=== PATIENT | female | born 1970 | race Caucasian/White ===

== ENCOUNTER 2017-06-28 13:30 | Emergency (ER) | payer OTHER ==
[~2017-06-28] VITALS: Ht 154.9 cm; Wt 89.0 kg
[~2017-06-28 13:30] MED LIST: MOTRIN
[2017-06-28 13:40] VITALS: BP 129/80
--- NOTE | 2017-06-28 13:51 | NUR ---
Patient to bed 11.
--- NOTE | 2017-06-28 14:05 | NUR ---
46/F BIB FAMILY C/O SORE THROAT WITH COLD S/SX x 4 DAYS; PT DENIES ANY CP OR SOB; PT IS AOX4 WITH EVEN AND STEADY GAIT; RR ARE EVEN AND UNSTEADY; NAD; ALL NEEDS MET AT THIS TIME. AWAITING ER MD THOMAS.
--- NOTE | 2017-06-28 15:41 | NUR ---
er md huynh by bedside examinig pt
[2017-06-28] MEDS ORDERED: KETOROLAC 60 MG/2 ML VIAL IM ONE (15:45)
--- NOTE | 2017-06-28 16:18 | NUR ---
Patient discharged with v/s stable. Written and verbal after care instructions given and explained. Patient alert, oriented and verbalized understanding of instructions. Ambulatory with steady gait. All questions addressed prior to discharge. ID band removed. Patient advised to follow up with PMD. Rx of MOtrin and Prednisone given. Patient educated on indication of medication including possible reaction and side effects. Opportunity to ask questions provided and answered.
[2017-06-28 16:19] VITALS: BP 130/87
== END 2017-06-28 16:18 | disposition home or self-care (01) ==
LOC: MED 13:30
DX: J02.9 Acute pharyngitis, unspecified (principal); Z90.89 Acquired absence of other organs
CPT/HCPCS: 96372; 99283; J1885

== ENCOUNTER 2018-11-02 12:47 | Emergency (ER) | payer OTHER ==
[~2018-11-02] VITALS: Ht 165.1 cm; Wt 81.6 kg
[2018-11-02 12:58] VITALS: BP 131/79
--- NOTE | 2018-11-02 14:19 | NUR ---
Patient ambulated to bed 1 with family. RN evaluating patient at bedside.
--- NOTE | 2018-11-02 14:35 | NUR ---
C/O LLE PAIN X 1 WEEK. 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 NO SWELLING/REDNESS/WARMTH NOTED. PAIN TO TOUCH. PT DENIES RECENT ILLNESS/INJURY, N/V/D/FEVER. SKIN IS PINK/WARM/DRY; AAOX4 WITH UNSTEADY GAIT; LUNGS CLEAR BL; HR EVEN AND REGULAR; PT DENIES ANY CP, SOB, OR COUGH AT THIS TIME; VSS; PATIENT POSITIONED FOR COMFORT; HOB ELEVATED; BEDRAILS UP X1; BED DOWN. ER MD MADE AWARE OF PT STATUS.
--- NOTE | 2018-11-02 14:36 | NUR ---
GAVE PT A CUP FOR URINE
--- NOTE | 2018-11-02 16:00 | NUR ---
PT DOES NOT NEED OXYGEN AT THIS TIME O2 SAT 98% DR. COLEEN MORRISSEY AWARE
[2018-11-02 16:14] LABS: BASOPHILS % (AUTO) 0.5 % (0.0-2.0); EOSINOPHILS # (AUTO) 0.2 K/uL (0-0.4); EOSINOPHILS % (AUTO) 2.8 % (0.0-4.0); HEMATOCRIT 33.6 % (36-48); HEMOGLOBIN 10.8 g/dL (12.0-16.0); LYMPHOCYTES # (AUTO) 1.9 K/uL (2.5-16.5); LYMPHOCYTES % (AUTO) 34.1 % (20.5-51.1); MEAN CORPUSCULAR HEMOGLOBIN 25 pg (27-31); MEAN CORPUSCULAR HGB CONC 32 g/dL (33-37); MEAN CORPUSCULAR VOLUME 79.1 fL (80-94); MONOCYTES # (AUTO) 0.4 K/uL (0.8-1.0); MONOCYTES % (AUTO) 7.2 % (1.7-9.3); NEUTROPHILS % (AUTO) 55.4 % (42.2-75.2); PLATELET COUNT (AUTO) 240 K/uL (140-450); RED BLOOD CELL COUNT(AUTO) 4.25 MIL/uL (4.20-5.40); RED CELL DISTRIBUTION WIDTH 16.1 % (11.6-13.7); WHITE BLOOD COUNT (AUTO) 5.4 K/uL (4.8-10.8)
--- NOTE | 2018-11-02 16:20 | NUR ---
XRAY AT BEDSIDE
[2018-11-02 16:28] LABS: PROTHROMBIN TIME 10.2 secs (10.8-13.4)
[2018-11-02 16:33] LABS: MAGNESIUM 2.1 mg/dL (1.8-2.4)
[2018-11-02 16:34] LABS: ALBUMIN 3.6 g/dL (3.4-5.0); ANION GAP 13.5 (8-16); CARBON DIOXIDE 25.1 mmol/L (21-32); CREATININE 0.7 mg/dL (0.6-1.3); POTASSIUM 3.6 mmol/L (3.5-5.1); TOTAL BILIRUBIN 0.2 mg/dL (0.0-1.0)
[2018-11-02 16:48] LABS: APPEARANCE,URINE CLEAR (CLEAR); BILIRUBIN,URINE NEGATIVE (NEGATIVE); BLOOD, URINE NEGATIVE (NEGATIVE); COLOR,URINE YELLOW (YELLOW); LEUKOCYTE ESTERASE ,URINE NEGATIVE (NEGATIVE); NITRITE, URINE NEGATIVE (NEGATIVE); UGLUCOSE NEGATIVE (NEGATIVE)
[2018-11-02] MEDS ORDERED: KETOROLAC 60 MG/2 ML VIAL IM ONE (17:55)
[2018-11-02 18:44] VITALS: BP 120/81
== END 2018-11-02 18:44 | disposition home or self-care (01) ==
LOC: MED 12:47
DX: R25.2 Cramp and spasm (principal); Z86.718 Personal history of other venous thrombosis and embolism; Z79.01 Long term (current) use of anticoagulants; Z79.1 Long term (current) use of non-steroidal anti-inflammatories (NSAID); Z86.711 Personal history of pulmonary embolism
CPT/HCPCS: 36415; 71045; 80053; 81003; 81025; 82150; 82550; 83690; 83735; 83880; 84484; 85025; 85379; 85610; 86886; 86900; 86901; 93005; 93971; 96372; 99284; J1885; Q0092

== ENCOUNTER 2021-10-04 15:30 | Inpatient (IN) | payer OTHER, SELFPAY ==
[~2021-10-04] VITALS: Ht 152.4 cm; Wt 91.2 kg
[2021-10-04 15:31] VITALS: BP 154/87
--- NOTE | 2021-10-04 15:43 | NUR ---
PT AMB TO BED 6.
[2021-10-04] MEDS ORDERED: ACETAMINOPHEN EXTRA STRENGTH 500 MG TAB PO ONE (16:05)
--- NOTE | 2021-10-04 16:24 | NUR ---
LAB AT PATIENT BEDSIDE.
[2021-10-04 16:45] LABS: EOSINOPHILS # (AUTO) 0.1 K/uL (0-0.4); EOSINOPHILS % (AUTO) 1.4 % (0.0-4.0); HEMATOCRIT 25.6 % (36-48); HEMOGLOBIN 7.8 g/dL (12.0-16.0); LYMPHOCYTES # (AUTO) 1.4 K/uL (2.5-16.5); LYMPHOCYTES % (AUTO) 27.8 % (20.5-51.1); MEAN CORPUSCULAR HEMOGLOBIN 21 pg (27-31); MEAN CORPUSCULAR HGB CONC 31 g/dL (33-37); MEAN CORPUSCULAR VOLUME 70.1 fL (80-94); MONOCYTES # (AUTO) 0.6 K/uL (0.8-1.0); MONOCYTES % (AUTO) 12.2 % (1.7-9.3); NEUTROPHILS # (AUTO) 2.9 K/uL (1.8-7.7); NEUTROPHILS % (AUTO) 58.6 % (42.2-75.2); PLATELET COUNT (AUTO) 221 K/uL (140-450); RED BLOOD CELL COUNT(AUTO) 3.65 MIL/uL (4.20-5.40); RED CELL DISTRIBUTION WIDTH 17.5 % (11.6-13.7); WHITE BLOOD COUNT (AUTO) 4.9 K/uL (4.8-10.8)
[2021-10-04 16:50] LABS: APPEARANCE,URINE CLEAR (CLEAR); BILIRUBIN,URINE NEGATIVE (NEGATIVE); BLOOD, URINE 3+ (NEGATIVE); LEUKOCYTE ESTERASE ,URINE NEGATIVE (NEGATIVE); NITRITE, URINE NEGATIVE (NEGATIVE); UGLUCOSE NEGATIVE (NEGATIVE)
[2021-10-04 16:57] LABS: ANION GAP 12.3 (8-16); CARBON DIOXIDE 26.2 mmol/L (21-32); CREATININE 0.6 mg/dL (0.6-1.3); POTASSIUM 3.5 mmol/L (3.5-5.1)
[2021-10-04 17:00] LABS: COLOR,URINE STRAW (YELLOW)
[2021-10-04 17:01] LABS: PROTHROMBIN TIME 10.4 secs (10.8-13.4)
[2021-10-04 17:02] LABS: RBC,URINE TOO NUMEROUS TO COUN /HPF (0-5); WBC,URINE 0-5 /HPF (0-5)
--- NOTE | 2021-10-04 18:10 | NUR ---
DR. KELLY PERFORMING PELVIC EXAM W/ FEMALE PARTNERSHIP DEVELOPMENT MANAGER AT BEDSIDE.
--- NOTE | 2021-10-04 18:16 | NUR ---
Female Assembler Tester accompanied female patient for Pelvic Exam.
[2021-10-04] MEDS ORDERED: medroxyPROGESTERone 10 MG TAB PO SCH (18:25)
--- NOTE | 2021-10-04 18:30 | NUR ---
NORMA SPECIMEN COLLECTED AND WALKED TO LAB, HANDED TO CPT MEGA
--- NOTE | 2021-10-04 18:42 | NUR ---
20G LAC ESTABLISHED AT THIS TIME.
[2021-10-04] MEDS ORDERED: APIX5TAB PO (18:55)
[2021-10-04] MEDS ORDERED: METF-350 PO (18:55)
--- NOTE | 2021-10-04 19:26 | NUR ---
Pt report given to MIHIR CANO. Transfer of care at this time.
[2021-10-04] MEDS ORDERED: NACL 0.9% 1,000 ML IV SCH (19:45)
[2021-10-04] MEDS ORDERED: POTASSIUM CHLORIDE 10 MEQ TABER PO PRN (19:55)
[2021-10-04] MEDS ORDERED: MAG SULF 2000 MG/WATER PREMIX 50 ML IV PRN (19:55)
[2021-10-04] MEDS ORDERED: DOCUSATE SODIUM 100 MG GELCAP PO PRN (19:55)
[2021-10-04] MEDS ORDERED: ZOLPIDEM 5 MG TAB PO PRN (19:55)
[2021-10-04] MEDS ORDERED: SODIUM PHOS / POTASSIUM PHOS 1 PKT PDR PO PRN (19:55)
[2021-10-04] MEDS ORDERED: ACETAMINOPHEN 325 MG TAB PO PRN (19:55)
[2021-10-04] MEDS ORDERED: ONDANSETRON 4 MG/2 ML VIAL IVP PRN (19:55)
[2021-10-04] MEDS: NACL 0.9% 1,000 ML IV SCH (19:55)
[2021-10-04] MEDS ORDERED: MORPHINE SULFATE 2 MG/ML SYR IVP PRN (19:55)
[2021-10-04] MEDS ORDERED: LORazepam 2 MG/ML VIAL IM/IVP PRN (19:55)
[2021-10-04] MEDS: HYDROcodone/APAP 5/325 MG 1 TAB TAB PO PRN (20:38)
[2021-10-04 21:28] LABS: PHOSPHORUS 3.3 mg/dL (2.5-4.9); THYROID STIMULATING HORMONE 1.93 uIU/mL (0.34-3.74)
--- NOTE | 2021-10-04 23:15 | NUR ---
HANDOFF TO MIHIR HIDALGO TO TELEMETRY. PT IS ALERT AND ORIENTED X4. VSS. NO COMPLAINTS OF PAIN AT THIS TIME.
--- NOTE | 2021-10-04 23:19 | NUR ---
Patient will be admitted to care of DR. BRADSHAW. Admited to TELEMETRY. Will go to [id number]. Belongings list completed. Report to MIHIR DEJESUS.
--- NOTE | 2021-10-04 23:50 | NUR ---
Admission note of a 50 year old female under the care of Doctor Barry for dysfunctional uterine bleeding. She is alert and oriented x4 and ambulatory with a steady gait. Her skin is intact and she is able to toilet independently. Her vaginal pads were being soaked approximately 10 times per day and she came to the emergency department seeking work up for the same. Carlyle Hopkins RN
[2021-10-04 23:56] VITALS: BP 116/75
[2021-10-05 00:32] LABS: BASOPHILS % (AUTO) 0.6 % (0.0-2.0); EOSINOPHILS # (AUTO) 0.1 K/uL (0-0.4); EOSINOPHILS % (AUTO) 2.4 % (0.0-4.0); HEMOGLOBIN 7.8 g/dL (12.0-16.0); LYMPHOCYTES # (AUTO) 2.3 K/uL (2.5-16.5); MEAN CORPUSCULAR HEMOGLOBIN 22 pg (27-31); MEAN CORPUSCULAR HGB CONC 31 g/dL (33-37); MEAN CORPUSCULAR VOLUME 69.5 fL (80-94); MONOCYTES # (AUTO) 0.5 K/uL (0.8-1.0); MONOCYTES % (AUTO) 8.9 % (1.7-9.3); NEUTROPHILS # (AUTO) 2.7 K/uL (1.8-7.7); NEUTROPHILS % (AUTO) 47.1 % (42.2-75.2); PLATELET COUNT (AUTO) 217 K/uL (140-450); RED CELL DISTRIBUTION WIDTH 17.5 % (11.6-13.7); WHITE BLOOD COUNT (AUTO) 5.7 K/uL (4.8-10.8)
[2021-10-05 04:00] VITALS: BP 120/78
[2021-10-05] MEDS: NACL 0.9% 1,000 ML IV SCH ×2 (05:15→15:04)
[2021-10-05 06:41] LABS: BASOPHILS % (AUTO) 0.5 % (0.0-2.0); EOSINOPHILS # (AUTO) 0.2 K/uL (0-0.4); HEMATOCRIT 25.5 % (36-48); HEMOGLOBIN 7.9 g/dL (12.0-16.0); LYMPHOCYTES # (AUTO) 2.5 K/uL (2.5-16.5); LYMPHOCYTES % (AUTO) 44.6 % (20.5-51.1); MEAN CORPUSCULAR HEMOGLOBIN 22 pg (27-31); MEAN CORPUSCULAR HGB CONC 31 g/dL (33-37); MEAN CORPUSCULAR VOLUME 69.9 fL (80-94); MONOCYTES # (AUTO) 0.5 K/uL (0.8-1.0); MONOCYTES % (AUTO) 9.4 % (1.7-9.3); NEUTROPHILS # (AUTO) 2.4 K/uL (1.8-7.7); NEUTROPHILS % (AUTO) 42.5 % (42.2-75.2); PLATELET COUNT (AUTO) 216 K/uL (140-450); RED BLOOD CELL COUNT(AUTO) 3.64 MIL/uL (4.20-5.40); RED CELL DISTRIBUTION WIDTH 17.3 % (11.6-13.7); WHITE BLOOD COUNT (AUTO) 5.7 K/uL (4.8-10.8)
--- NOTE | 2021-10-05 07:22 | NUR ---
HANDOFF WITH DAY TEAM REGISTERED NURSE, KAILASH. JAYDEN RHODES RN
--- NOTE | 2021-10-05 07:30 | NUR ---
HANDOFF REPORT RECEIVED FROM PM SHIFT MIHIR NOYOLA FOR CONTINUITY OF CARE. PT. ALERT,AWAKE. STABLE ON ROOM AIR. NO DISTRESS NOTED. ALL SAFETY MEASURES IN PLACE. WILL CONTINUE TO MONITOR THE PT.
[2021-10-05 08:00] VITALS: BP 117/70
--- NOTE | 2021-10-05 10:11 | NUR ---
PATIENT HAS BEEN SCREENED AND CATEGORIZED LOW NUTRITION RISK. PATIENT WILL BE SEEN WITHIN 7 DAYS OF ADMISSION. 10/11/[address]
--- NOTE | 2021-10-05 10:13 | NUR ---
PT. ALERT. STABLE ON ROOM AIR. ADMINISTERED SCHEDULED MEDICATION. PT. TOLERATED WELL .WILL CONTINUE TO MONITOR THE PT.
[2021-10-05 11:05] LABS: ALBUMIN 3.6 g/dL (3.4-5.0); ANION GAP 24.2 (8-16); CARBON DIOXIDE 17.7 mmol/L (21-32); POTASSIUM 3.9 mmol/L (3.5-5.1); TOTAL BILIRUBIN 0.1 mg/dL (0.0-1.0)
--- NOTE | 2021-10-05 11:05 | NUR ---
DC PLANNIN YRS OLD FEMALE PATIENT WAS ADMITTED FROM HOME WITH A DX OF DYSFUNCTIONAL UTERINE BLEEDING. PATIENT HAS A HX OF UTERINE FIBROIDS AND ANEMIA. ORDERED PELVIC US. ADMINISTERED IVF, AND PAIN MEDS. CONSULTED WITH VISCOSITY WORKER. DC PLAN TO GO HOME WHEN STABLE. CM TO FOLLOW Addendum: 10/05/21 at 1133 by Jossie Navarro RN DC PLANNING: ROBEL DENNY [phone] SPOKE WITH ARACELIS NOTIFIED HER THAT PATIENT IS INPT STATUS PER ARACELIS NEEDS THE FACE SHEET AND H&P, ONCE SHE RECEIVED IT WILL CREAT AN AUTH. FAXED ALL PAPERWORK TO [phone] CM TO FOLLOW
[2021-10-05 11:40] LABS: CREATININE 0.6 mg/dL (0.6-1.3)
[2021-10-05 11:59] LABS: MAGNESIUM 1.8 mg/dL (1.8-2.4)
[2021-10-05 12:00] VITALS: BP 129/81
--- NOTE | 2021-10-05 13:00 | NUR ---
PT. STABLE ON ROOM AIR. RESP. NORMAL NO DISTRESS NOTED.US PELVIS DONE ORDER.
[2021-10-05 16:00] VITALS: BP 123/78
--- NOTE | 2021-10-05 17:00 | NUR ---
PT. ALERT,STABLE ON ROOM AIR. NO NOTED DISTRESS. . RECEIVED ORDER TO START PO DIET. ORDER CARRIED OUT. CONT. MONITORING THE PT.
[2021-10-05 17:29] LABS: BARBITURATE, URINE NEGATIVE ng/ml (NEG <=200); BENZODIAZEPINE, URINE NEGATIVE ng/mL (NEG <=200); CANNABINOID, URINE NEGATIVE ng/mL (NEG <=50); COCAINE, URINE NEGATIVE ng/mL (NEG <=300); OPIATE, URINE POSITIVE ng/mL (NEG <=2000); PHENCYCLIDINE SCREEN,URINE NEGATIVE ng/mL (NEG <=25)
--- NOTE | 2021-10-05 18:17 | NUR ---
DISCHARGED PT. TO [facility] ORDER. PT. STABLE UPON DISCHARGE. VS WNL. NO ANY ACUTE DISTRESS NOTED. PICKED UP PT. BY ANY AMBULANCE TRANSPORTATION ARRANGED BY KENN. REPORT GIVEN TO AMBULANCE PERSONNEL. Addendum: 10/05/21 at 1820 by Michelle Alvarado RN ERROR . DOCUMENTED IN WRONG CHART BY MYSELF
--- NOTE | 2021-10-05 18:45 | NUR ---
`STARTED MAGNESIUM SULFATE 2GM IVPB PRN ORDER FOR MG LEVEL 1,8 TODAY. WILL CONTINUE TO MONITOR THE PT.
--- NOTE | 2021-10-05 18:57 | NUR ---
NOTIFIED DR. MAST REGARDING PT'S SODIUM LEVEL IS 150. AND PT. HAS NS 100ML /HR IVF RUNNING . ORDER RECEIVED TO CHANGE IVF D5 / NS @100ML/HR. WILL CARRYOUT ORDER . WILL ENDORSE REPORT TO PM SHIFT RN TO FOLLOW UP.
--- NOTE | 2021-10-05 19:15 | NUR ---
REPORT GIVEN TO PM SHIFT RN FOR CONTINUITY OF CARE. PT. BRYANNA.
[2021-10-05 20:00] VITALS: BP 106/70
--- NOTE | 2021-10-05 20:00 | NUR ---
RECEIVED BEDSIDE REPORT EARLIER FROM DAY RN FOR CONTINUITY OF CARE. RECEIVED THE PATIENT A/A/OX3, SITTING UP IN BED WATCHING TV. PT VERBALIZED THAT SHE HAS NO VAGINAL BLEEDING ANYMORE. PT C/O HEADACHE AT CHANGE OF SHIFT. WILL GIVE THE PRN MEDICATION IF ITS DUE. OTHERWISE NO OTHER COMPLAIN AT THIS TIME. IVF INFUSING ORDERED. VSS, AFEBRILE, SATING 99% ON RA. SR ON TELE, HR-84. CALL LIGHT WITHIN REACH. WILL CONTINUE POC AND MONITORING.
[2021-10-05] MEDS: DEXT 5% / NACL 0.45% 1,000 ML IV SCH ×2 (20:02→20:15)
[2021-10-05] MEDS: HYDROcodone/APAP 5/325 MG 1 TAB TAB PO PRN (20:16)
--- NOTE | 2021-10-05 22:00 | NUR ---
ALL DUE MEDICATIONS GIVEN ORDERED. NO ADVERSE DRUG REACTION NOTED AND NO COMPLAIN FROM THE PATIENT. WILL CONTINUE OBSERVATION.
[2021-10-06] VITALS: BP 112/68
--- NOTE | 2021-10-06 | NUR ---
PATIENT VITAL SIGNS STABLE, AFEBRILE, SATING 97% ON RA. SINUS RHYTHM ON PROPERTY FIELD INSPECTOR, HR-73. NO COMPLAIN OF PAIN AT THIS TIME. CALL LIGHT WITHIN REACH. WILL CONTINUE POC.
--- NOTE | 2021-10-06 02:22 | NUR ---
PATIENT ASLEEP AT THIS TIME. VISIBLE CHEST RISE AND FALL NOTED. NO SIGN AND SYMPTOMS OF DISTRESS NOTED. WILL CONTINUE MONITORING.
[2021-10-06 04:00] VITALS: BP 105/63
--- NOTE | 2021-10-06 04:00 | NUR ---
PATIENT VITAL SIGNS STABLE, AFEBRILE, SATING 98% ON RA. SINUS RHYTHM ON MANAGER VEHICLE, HR-86. COMPLAINING OF HEADACHE. WILL GIVE PRN MED IF ITS DUE. CALL LIGHT WITHIN REACH. WILL CONTINUE POC.
[2021-10-06] MEDS: HYDROcodone/APAP 5/325 MG 1 TAB TAB PO PRN (04:26)
[2021-10-06] MEDS: DEXT 5% / NACL 0.45% 1,000 ML IV SCH (04:34)
[2021-10-06 06:31] LABS: BASOPHILS % (AUTO) 0.3 % (0.0-2.0); EOSINOPHILS # (AUTO) 0.1 K/uL (0-0.4); EOSINOPHILS % (AUTO) 2.7 % (0.0-4.0); HEMATOCRIT 27.6 % (36-48); HEMOGLOBIN 8.5 g/dL (12.0-16.0); LYMPHOCYTES # (AUTO) 2.2 K/uL (2.5-16.5); LYMPHOCYTES % (AUTO) 40.4 % (20.5-51.1); MEAN CORPUSCULAR HEMOGLOBIN 22 pg (27-31); MEAN CORPUSCULAR HGB CONC 31 g/dL (33-37); MEAN CORPUSCULAR VOLUME 70.2 fL (80-94); MONOCYTES # (AUTO) 0.6 K/uL (0.8-1.0); MONOCYTES % (AUTO) 10.8 % (1.7-9.3); NEUTROPHILS # (AUTO) 2.5 K/uL (1.8-7.7); NEUTROPHILS % (AUTO) 45.8 % (42.2-75.2); PLATELET COUNT (AUTO) 233 K/uL (140-450); RED BLOOD CELL COUNT(AUTO) 3.92 MIL/uL (4.20-5.40); RED CELL DISTRIBUTION WIDTH 17.2 % (11.6-13.7); WHITE BLOOD COUNT (AUTO) 5.5 K/uL (4.8-10.8)
--- NOTE | 2021-10-06 06:33 | NUR ---
NO ACUTE EVENT THROUGHOUT THE NIGHT. PATIENT STABLE. NOT IN ANY DISTRESS. NO COMPLAIN AT THIS TIME. ALL NEEDS ATTENDED. CALL LIGHT WITHIN REACH. WILL ENDORSE THE PATIENT TO THE ONCOMING NURSE FOR CONTINUITY OF CARE.
--- NOTE | 2021-10-06 07:31 | NUR ---
Endorsed patient to day Rn for continuity of care. Patient stable. Signing off.
--- NOTE | 2021-10-06 07:35 | NUR ---
RECEIEVED REPORT FROM PM SHIFT COR CONTINUITY OF CARE, PT APPEARS ASLEEP, STABLE, SAFETY MEASURES MAINTAINED, CALL LIGHT WITHIN REACH, NO ACUTE DISTRESS, WILL CONTINUE TO MONITOR
[2021-10-06 07:38] LABS: CARBON DIOXIDE 25.3 mmol/L (21-32); CREATININE 0.6 mg/dL (0.6-1.3); MAGNESIUM 2.1 mg/dL (1.8-2.4); POTASSIUM 3.3 mmol/L (3.5-5.1); TOTAL BILIRUBIN 0.2 mg/dL (0.0-1.0)
[2021-10-06] MEDS ORDERED: PROV2.5 PO (07:52)
[2021-10-06 08:00] VITALS: BP 114/69
--- NOTE | 2021-10-06 08:19 | NUR ---
PT STABLE FOR DC, EDUCATION PROVIDED, IV REMOVED, VSS, NO ACUTE DISTRESS, WILL CONTINUE TO MONITOR UNTIL RIDE IS HERE
[2021-10-06 08:22] LABS: ALBUMIN 3.6 g/dL (3.4-5.0)
--- NOTE | 2021-10-06 09:06 | NUR ---
PT DISCHARGED HOME WITH .
== END 2021-10-06 09:26 | disposition home or self-care (01) | DRG 532 ==
LOC: MED 15:30 → MTU 19:54
PROVIDERS: ADMIT Family Medicine; ATTEND Family Medicine
DX: D25.9 Leiomyoma of uterus, unspecified (principal); D64.9 Anemia, unspecified; N93.8 Other specified abnormal uterine and vaginal bleeding; Z60.2 Problems related to living alone; Z20.822 Contact with and (suspected) exposure to COVID-19; Z91.09 Other allergy status, other than to drugs and biological substances; Z79.01 Long term (current) use of anticoagulants; Z79.84 Long term (current) use of oral hypoglycemic drugs; Z79.899 Other long term (current) drug therapy
CPT/HCPCS: 36415; 76830; 80048; 80053; 80305; 81001; 82150; 83690; 83735; 84100; 84443; 84484; 85025; 85610; 85730; 86886; 86900; 86901; 87081; 99285; J3475; Q0092

== ENCOUNTER 2022-06-21 20:44 | Emergency (ER) | payer OTHER ==
[~2022-06-21] VITALS: Ht 152.4 cm; Wt 116.1 kg
[~2022-06-21 20:44] MED LIST changes: +APIX5TAB PO; +METF-350 PO; +PROV2.5 PO
[2022-06-21 22:26] VITALS: BP 140/85
--- NOTE | 2022-06-21 23:05 | NUR ---
Dr. Donis examining patient.
[2022-06-21] MEDS ORDERED: KETOROLAC 30 MG/ML VIAL IM ONE (23:10)
[2022-06-21] MEDS ORDERED: ONDANSETRON 4 MG ODT PO ONE (23:10)
--- NOTE | 2022-06-21 23:19 | NUR ---
COVID-19 and flu swabs collected and sent to lab.
[2022-06-21 23:43] LABS: BASOPHILS % (AUTO) 0.2 % (0.0-2.0); EOSINOPHILS % (AUTO) 0.1 % (0.0-4.0); HEMATOCRIT 28.9 % (36-48); HEMOGLOBIN 8.8 g/dL (12.0-16.0); LYMPHOCYTES # (AUTO) 0.4 K/uL (2.5-16.5); LYMPHOCYTES % (AUTO) 6.5 % (20.5-51.1); MEAN CORPUSCULAR HEMOGLOBIN 20 pg (27-31); MEAN CORPUSCULAR HGB CONC 31 g/dL (33-37); MEAN CORPUSCULAR VOLUME 65.5 fL (80-94); MONOCYTES # (AUTO) 0.2 K/uL (0.8-1.0); MONOCYTES % (AUTO) 4.3 % (1.7-9.3); NEUTROPHILS # (AUTO) 4.9 K/uL (1.8-7.7); NEUTROPHILS % (AUTO) 88.9 % (42.2-75.2); PLATELET COUNT (AUTO) 283 K/uL (140-450); RED BLOOD CELL COUNT(AUTO) 4.41 MIL/uL (4.20-5.40); RED CELL DISTRIBUTION WIDTH 18.2 % (11.6-13.7); WHITE BLOOD COUNT (AUTO) 5.5 K/uL (4.8-10.8)
[2022-06-22] LABS: ALBUMIN 4.3 g/dL (3.4-5.0); ANION GAP 14.6 (8-16); CARBON DIOXIDE 25.9 mmol/L (21-32); CREATININE 0.6 mg/dL (0.6-1.3); POTASSIUM 3.5 mmol/L (3.5-5.1); TOTAL BILIRUBIN 0.3 mg/dL (0.0-1.0)
--- NOTE | 2022-06-22 00:34 | NUR ---
Dr. Donis explained results and treatment plans.
[2022-06-22] MEDS ORDERED: APIX2.5 PO (00:50)
[2022-06-22] MEDS ORDERED: NIRM1TAB PO (00:50)
[2022-06-22 00:58] VITALS: BP 136/85
--- NOTE | 2022-06-22 00:58 | NUR ---
Patient discharged with v/s stable. Written and verbal after care instructions given and explained. Patient alert, oriented and verbalized understanding of instructions. Ambulatory with steady gait. All questions addressed prior to discharge. ID band removed. Patient advised to follow up with PMD. Rx of Eliquis and Nirmatrelvir/Ritonavir given. Patient educated on indication of medication including possible reaction and side effects. Opportunity to ask questions provided and answered.
== END 2022-06-22 00:58 | disposition home or self-care (01) ==
LOC: MED 20:44
DX: U07.1 COVID-19 (principal); E11.9 Type 2 diabetes mellitus without complications; Z79.4 Long term (current) use of insulin; Z79.899 Other long term (current) drug therapy
CPT/HCPCS: 36415; 80053; 83690; 85025; 87426; 87804; 96372; 99283; J1885; Q0162

== ENCOUNTER 2022-11-08 21:57 | Emergency (ER) | payer OTHER ==
[~2022-11-08] VITALS: Ht 152.4 cm; Wt 116.1 kg
[~2022-11-08 21:57] MED LIST changes: +APIX2.5 PO; +NIRM1TAB PO
[2022-11-08 22:10] VITALS: BP 127/74
--- NOTE | 2022-11-08 22:14 | NUR ---
PT TAKEN TO BED 9 VIA WHEEL CHAIR
--- NOTE | 2022-11-08 22:31 | NUR ---
Saroj connolly in [facility] - 11/08/22 at [address] Jarrett examining patient.
--- NOTE | 2022-11-08 22:39 | NUR ---
Dr. Jarrett examining patient.
[2022-11-08] MEDS ORDERED: LIDOCAINE/EPI 2% 1:100000 20 ML VIAL INJ ONE (22:45)
[2022-11-08] MEDS ORDERED: LIDOCAINE/EPI MPF 1%1:200000 30 ML VIAL INJ ONE (22:47)
--- NOTE | 2022-11-08 23:41 | NUR ---
Patient has a 4 cm laceration to right lower leg. Dr. Jarrett applied sutures using sterile technique. Edges well approximated. Site cleansed with NSS. No bleeding noted. Pt tolerated well.
[2022-11-08] MEDS ORDERED: BACITRACIN OINT 500 UNITS/GM PKT TP ONE (23:53)
[2022-11-09] MEDS ORDERED: BACTO TP (00:01)
[2022-11-09] MEDS ORDERED: BACITRACIN OINT 500 UNITS/GM PKT TP ONE ×2 (00:05→00:20)
[2022-11-09 00:19] VITALS: BP 122/74
--- NOTE | 2022-11-09 00:19 | NUR ---
Patient discharged with v/s stable. Written and verbal after care instructions given and explained. Patient alert, oriented and verbalized understanding of instructions. Ambulatory with steady gait. All questions addressed prior to discharge. ID band removed. Patient advised to follow up with PMD. Rx of Bactroban given. Patient educated on indication of medication including possible reaction and side effects. Opportunity to ask questions provided and answered.
== END 2022-11-09 00:19 | disposition home or self-care (01) ==
LOC: MED 21:57
DX: S81.811A Laceration without foreign body, right lower leg, initial encounter (principal); E11.9 Type 2 diabetes mellitus without complications; Z79.4 Long term (current) use of insulin; Z79.899 Other long term (current) drug therapy; X58.XXXA Exposure to other specified factors, initial encounter; Y93.89 Activity, other specified; Y92.89 Other specified places as the place of occurrence of the external cause; Y99.8 Other external cause status
CPT/HCPCS: 12002; 90471; 90715; 99283; J2001

== ENCOUNTER 2022-11-16 18:37 | Emergency (ER) | payer OTHER, MEDICAID ==
[~2022-11-16] VITALS: Ht 157.5 cm; Wt 70.3 kg
[~2022-11-16 18:37] MED LIST changes: +BACTO TP
[2022-11-16 19:05] VITALS: BP 120/78
[2022-11-16 21:20] VITALS: BP 120/78
--- NOTE | 2022-11-16 21:20 | NUR ---
Patient discharged with v/s stable. Written and verbal after care instructions given and explained. Patient verbalized understanding. Ambulatory with steady gait. All questions addressed prior to discharge. Advised to follow up with PMD.
== END 2022-11-16 21:20 | disposition home or self-care (01) ==
LOC: MED 18:37
DX: S81.811D Laceration without foreign body, right lower leg, subsequent encounter (principal); E11.9 Type 2 diabetes mellitus without complications; Z48.02 Encounter for removal of sutures; Z79.4 Long term (current) use of insulin; Z79.899 Other long term (current) drug therapy; X58.XXXD Exposure to other specified factors, subsequent encounter
CPT/HCPCS: 99281